=== PATIENT | female | born 1955 | race Caucasian/White ===

== ENCOUNTER 2017-02-13 13:55 | Emergency (ER) | payer MEDICAID ==
--- NOTE | 2017-02-13 14:11 | ED Physician Chart ---
Chief Complaint/HPI - Patient Information Date Seen:: 02/13/17 Time Seen:: 14:05 Chief Complaint:: R knee pain for about 9 months. History of Present Illness:: Pt has h/o R knee pain for about 9 months. Pt has been followed with her PCP Dr. Kerr with R knee X-ray done about 5 months ago which revealed ?DJD according to pt. Pt is here primarily for pain control. Pt denies any recent injury to R knee. No weakness or numbness. Pt has not taken any analgesic today. Allergies:: Allergies Allergy/AdvReac Type Severity Reaction Status Date / Time codeine Allergy VOMITING Verified 10/15/16 10:34 Sulfa (Sulfonamide Allergy ITCHINESS Verified 10/15/16 10:34 Antibiotics) Vitals:: see Nurse Note. Historian:: Patient Family MD/PCP:: Dr. Kerr LMP:: Postmenopausal. Review:: Nurse's Note Reviewed Review of Systems - Review of Systems General/Constitutional: No fever, No chills, No weight loss, No weakness, No diaphoresis, No edema, No loss of appetite Skin: No skin lesions, No rash, No bruising Head: No headache, No light-headedness Eyes: No loss of vision, No pain, No diplopia ENT: No earache, No nasal drainage, No sore throat, No tinnitus Neck: No neck pain, No swelling, No thyromegaly, No stiffness, No mass noted Cardio Vascular: No chest pain, No palpitations, No PND, No orthopnea, No edema Pulmonary: No SOB, No cough, No sputum, No wheezing GI: No nausea, No vomiting, No diarrhea, No pain, No melena, No hematochezia, No constipation, No hematemesis G/U: No dysuria, No frequency, No hematuria Musculoskeletal: No back pain, Other (R knee pain, see HPI.) Endocrine: No polyuria, No polydipsia Psychiatric: Prior psych history, No depression, No anxiety, No suicidal ideation, No homicidal ideation, No auditory hallucination, No visual hallucination Hematopoietic: No bruising, No lymphadenopathy Allergic/Immuno: No urticaria, No angioedema Neurological: No syncope, No focal symptoms, No weakness, No paresthesia, No headache, No seizure, No dizziness, No confusion, No vertigo Past Medical History - Past Medical History Past Medical History: HTN, PUD/GERD, Arthritis (DJD), Other (osteoporosis) Family History: Heart disease, Diabetes Melitus Social History: Non Smoker, No Alcohol, No Drug Use, , Other (lives with her daugher and son-in-law.) Employment:: unemployed. Surgical History: Cholecystectomy (in her 30's) Psychiatricy History: Depression, Schizophrenia Medication: Reviewed Family Medical History - Family Member Mother Sister History Unknown: Yes Ethnicity: Non- Hx Family Cancer: No Hx Family Coronary Artery Disease: Yes Hx Family Congestive Heart Failure: No Hx Family Hypertension: No Brother History Unknown: Yes Ethnicity: Non- Living Status: Still Living Hx Family Diabetes: Yes Daughter History Unknown: Yes Ethnicity: Living Status: Still Living Hx Family Cancer: Yes (CERVICAL) Physical Exam - Physical Examination General/Constitutional: Awake, Well-developed, well-nourished, Alert, No distress, GCS 15, Non-toxic appearing Other Gen/Cons comments:: Breathes comfortably, speaks clearly, and interacts normally. Head: Atraumatic Eyes: Lids, conjuctiva normal, PERRL, EOMI Skin: Nl inspection, No rash, No skin lesions, No ecchymosis, Well hydrated, No lymphadenopathy Neck: Nontender, Full ROM w/o pain, No nuchal rigidity, No mass, No stridor Respiratory: Nl effort/Exclusion, Clear to Auscultation, No Wheeze/Rhonchi/Rales Cardio Vascular: RRR, No murmur, gallop, rubs GI: No tenderness/rebounding/guarding, No organomegaly, No hernia, Normal BS's, Nondistended, No mass/bruits, No McBurney tenderness Other GI comments:: Abdomen is obese but soft. Other Extremities comments:: R knee: Tenderness to palpation at anterio-medial aspect. Good ROM. No noticeable swelling, erythema, gross deformity, open wound, crepitus or unusal warmth. Negative Drawer's sign. Stable MCL and LCL. No detectable motor/sensory/ vascular deficit. Neuro/Psych: Alert/oriented (oriented x 3), Mood normal, No focal deficits ED Septic Shock - . Is Septic Shock (SBP<90, OR Lactate>4 mmol\L) present?: No Reassessment (Disposition) - Reassessment Reassessment:: 1448 Pt feels much better. She is back to her baseline functional status and is ambulatory without assistance without difficulty. Pt states that she already has an appointment with her PCP Dr. Kerr tomorrow. Pt requests to go home now and will follow with Dr. Kerr tomorrow. Aftercare instructions have been given. Reassessment Condition:: Improved - Diagnosis Diagnosis:: Chronic R knee pain c/w osteoarthritis, stable and improved. - Aftercare/Follow up Instructions Aftercare/Follow-Up Instructions:: Refer to Discharge Instructions Notes:: Avoid heavy lifting and excessive wt bearing activities on R knee. May take Tylenol 500 mg tab one tab po q4-6h as directed. F/U with PCP Dr. Kerr as scheduled tomorrow. Return to ER immediately if condition worsens or if any further questions/problems. Medication Prescribed:: None - Patient Disposition Discharge/Transfer:: Home Time:: 14:55 Condition at Disposition:: Stable, Improved
== END 2017-02-13 14:40 | disposition home or self-care (01) ==
LOC: ER 13:55
DX: M17.11 Unilateral primary osteoarthritis, right knee (principal); I10 Essential (primary) hypertension; K21.9 Gastro-esophageal reflux disease without esophagitis; Z90.49 Acquired absence of other specified parts of digestive tract; Z88.2 Allergy status to sulfonamides; Z88.6 Allergy status to analgesic agent
CPT/HCPCS: 99283; 96372; J1885; Z7502

== ENCOUNTER 2017-09-11 16:59 | Emergency (ER) | payer MEDICAID ==
--- NOTE | 2017-09-11 18:02 | ED Physician Chart ---
ED Chief Complaint/HPI - Patient Information Date Seen:: 09/11/17 Time Seen:: 17:34 Chief Complaint:: Small boil at L axillary region for 2 days. History of Present Illness:: Pt came in by private auto for the above reason. No fever. Pt take po well without N/V/D. Allergies:: Allergies Allergy/AdvReac Type Severity Reaction Status Date / Time codeine Allergy VOMITING Verified 09/11/17 17:37 Sulfa (Sulfonamide Allergy ITCHINESS Verified 09/11/17 17:37 Antibiotics) Vitals:: Vital Signs - 8 hr 09/11/17 17:38 Temp 97.9 F HR 79 RR 18 BP 153/77 O2 Sat % 95 Historian:: Patient Family MD/PCP:: Dr. Dillon LMP:: Postmenopausal. Review:: Nurse's Note Reviewed ED Review of Systems - Review of Systems General/Constitutional: No fever, No weight loss, No weakness, No edema, No loss of appetite Skin: Other (L axillary lesion.) Head: No headache, No light-headedness Eyes: No loss of vision, No pain, No diplopia ENT: No earache, No nasal drainage, No sore throat Neck: No neck pain, No swelling, No thyromegaly, No stiffness, No mass noted Cardio Vascular: No chest pain, No palpitations, No edema Pulmonary: No SOB, No cough, No wheezing GI: No nausea, No vomiting, No diarrhea, No pain G/U: No dysuria, No frequency, No hematuria Shallot Packer: No vaginal discharge, No abnormal vaginal bleed Musculoskeletal: No bone or joint pain Endocrine: No polyuria, No polydipsia Psychiatric: Prior psych history, No depression, No anxiety, No suicidal ideation, No homicidal ideation, No auditory hallucination, No visual hallucination Hematopoietic: No bruising, No lymphadenopathy Allergic/Immuno: No urticaria, No angioedema Neurological: No syncope, No focal symptoms, No weakness, No paresthesia, No headache, No dizziness, No confusion ED Past Medical History - Past Medical History Past Medical History: HTN, Asthma/COPD, Other (osteoporosis) Family History: Heart disease (brother and sister.), Diabetes Melitus (one brother), Cancer (parents and one daughter.) Social History: Non Smoker, No Alcohol, No Drug Use, , Other (lives with her daughter.) Employment:: unemployed. Surgical History: other (R knee arthroscopic surgery 06/2017) Psychiatricy History: Depression, Schizophrenia, Other (Anxiety disorder.) Medication: Reviewed Family Medical History - Family Member Mother Sister History Unknown: Yes Ethnicity: Non- Living Status: Still Living Hx Family Cancer: No Hx Family Coronary Artery Disease: Yes Hx Family Congestive Heart Failure: No Hx Family Hypertension: No Brother History Unknown: Yes Ethnicity: Non- Living Status: Still Living Hx Family Coronary Artery Disease: Yes Hx Family Diabetes: Yes Daughter History Unknown: Yes Ethnicity: Living Status: Still Living Hx Family Cancer: Yes (CERVICAL) ED Physical Exam - Physical Examination General/Constitutional: Awake, Well-developed, well-nourished, Alert, No distress, GCS 15, Non-toxic appearing, Ambulatory Other Gen/Cons comments:: Breathes comfortably, speaks clearly, interacts normally and ambulates without difficulty. Head: Atraumatic Eyes: Lids, conjuctiva normal, PERRL, EOMI Skin: No ecchymosis, Well hydrated, No lymphadenopathy Other Skin comments:: There is an approx 1.2 cm slightly erythematous indurated lesion in anterior aspect of left axillary region c/w early abscess. No flocculent center. No red streakings or peripheral erythema. No crepitus. ENMT: Nasal exam nl, Oropharynx nl Neck: Nontender, Full ROM w/o pain, No nuchal rigidity, No mass, No stridor Respiratory: Nl effort/Exclusion, Clear to Auscultation, No Wheeze/Rhonchi/Rales Cardio Vascular: RRR, No murmur, gallop, rubs Extremities: No edema Neuro/Psych: Alert/oriented (oriented x 3), Judgement/insight normal, Mood normal, Normal gait, No focal deficits ED Septic Shock - . Is Septic Shock (SBP<90, OR Lactate>4 mmol\L) present?: No - <6hrs of presentation: Vital Signs: Vital Signs - 8 hr 09/11/17 17:38 Temp 97.9 F HR 79 RR 18 BP 153/77 O2 Sat % 95 ED Reassessment (Disposition) - Reassessment Reassessment:: 1820 Pain medication was offered, but pt declined. Pt prefers to leave now. Aftercare instructions given. - Diagnosis Diagnosis:: Early left axillary abscess. Stable. - Aftercare/Follow up Instructions Aftercare/Follow-Up Instructions:: Refer to Discharge Instructions Notes:: Keep affected area clean and dry. May take Motrin 200 mg tab 4 tab po q8h prn pain. F/U with PCP Dr. Dillon in 1-2 days for recheck. Return to ER immediately if condition worsens or if any further questions/problems. Medication Prescribed:: Clindamycin 300 mg tab one tab po q6h for 10 days. D-40 R-0 - Patient Disposition Discharge/Transfer:: Home Time:: 18:25 Condition at Disposition:: Stable ED Discharge Plan - Patient Disposition Admit/Discharge/Transfer: PT DISCHARGED HOME Condition at Disposition: Stable Prescriptions: Clindamycin HCl 300 mg PO Q6H 10 Days #40 capsule Instructions: Abscess Additional Instructions: Pt. to DC home with prescriptions. Follow-up with primary MD.
== END 2017-09-11 18:29 | disposition home or self-care (01) ==
LOC: ER 16:59
DX: L02.412 Cutaneous abscess of left axilla (principal); I10 Essential (primary) hypertension; J45.909 Unspecified asthma, uncomplicated; J44.1 Chronic obstructive pulmonary disease with (acute) exacerbation
CPT/HCPCS: Z7502

== ENCOUNTER 2018-01-14 10:34 | Emergency (ER) | payer MEDICAID ==
[2018-01-14] MEDS ORDERED: Albuterol/Ipratropium Neb 3 ML AERS HHN ONE ×2 (11:30→11:41)
[2018-01-14 11:42] LABS: % BASOPHILS 0.3 % (0.0-2.0); % EOSINOPHILS 0.9 % (0.0-5.0); % LYMPHOCYTES 11.7 % (20.0-50.0); % MONOCYTES 7.9 % (2.0-10.0); % NEUTROPHILS 79.2 % (40.0-80.0); EOSINOPHILE ABSOLUTE 0.1 Th/cmm (0.1-0.4); HEMOGLOBIN 13.9 gm/dL (12-16); LYMPHOCYTE ABSOLUTE 0.7 Th/cmm (1.5-3.0); MEAN CORPUSCULAR HEMOGLOBIN 30.5 pg (27.0-31.0); MEAN CORPUSCULAR HGB CONC 33.8 pg (28.0-36.0); MEAN PLATELET VOLUME 7.5 fl; MONOCYTE ABSOLUTE 0.5 Th/cmm (0.3-1.0); NEUTROPHILE ABSOLUTE 4.4 Th/cmm (1.8-8.0); PLATELET COUNT 259 Th/cmm (150-400); RED BLOOD COUNT 4.56 Mil/cmm (3.80-5.10); RED CELL DISTRIBUTION WIDTH 12.9 % (11.5-20.0)
[2018-01-14 11:47] LABS: ALB/GLOB RATIO 1.5 (1.0-1.8); ALBUMIN 4.6 gm/dL (3.7-5.3); ALKALINE PHOSPHATASE 75 U/L (34-104); ANION GAP 10.3 (7.0-16.0); BILIRUBIN,TOTAL 0.5 mg/dL (0.3-1.0); BUN - UREA NITROGEN 13 mg/dL (7-25); CALCIUM SERUM 10.7 mg/dL (8.6-10.3); CARBON DIOXIDE 30.5 mEq/L (21.0-31.0); CHLORIDE 96 mEq/L (98-107); CREATININE - SERUM 0.8 mg/dL (0.6-1.2); GFR AFRICAN-AMERICAN > 60.0 ml/min (>90); GFR NON AFRICAN-AMERICAN > 60.0 ml/min; GLUCOSE 130 mg/dL (70-105); POTASSIUM SERUM 3.8 mEq/L (3.5-5.1); SGOT 15 U/L (13-39); SGPT/ALT 20 U/L (7-52); SODIUM SERUM 133 mEq/L (136-145); TOTAL PROTEIN,SERUM 7.7 gm/dL (6.0-8.3)
[2018-01-14 11:51] LABS: WHITE BLOOD COUNT 5.7 Th/cmm (4.8-10.8)
[2018-01-14 11:56] LABS: INF A SCREEN NEG FOR INF A; INF B SCREEN NEG FOR INF B
--- NOTE | 2018-01-14 17:17 | Transfer Summary ---
DATE OF TRANSFER: 01/14/2018 ADDENDUM FOLLOWUP ADDENDUM REPORT I just got the complete report showing white count to be 5.7; hemoglobin 13.9; hematocrit 41; platelet count 259,000; neutrophils are 79.2, which is almost high; and lymphocytes are 11.7, low. Sodium 133, potassium 3.8, chloride 96, CO2 of 30.5, BUN 13, creatinine 0.8, calcium is 10.7, glucose is 130, magnesium is 2.1. Bilirubin is 0.5, AST is 15, ALT is 20, alkaline phosphatase 77. Total protein 7.7, ____ 4.6, globulin 3.1, and ____ is 1.5. Influenza A and B rapid serology test was negative. The patient's EKG shows complete left bundle branch block, hence underlying old anteroseptal myocardial infarction cannot be ruled out. The patient has left bundle branch block. FINAL DIAGNOSES: 1. Acute tracheobronchitis and upper respiratory tract infection. 2. Chronic obstructive pulmonary disease by default. 3. Hypertension. 4. Psychosis. 5. Schizophrenia. 6. Possible some kind of right knee joint surgery done in the past and she will need right knee joint replacement. She says she will get it done in April of this year. She has allergic condition. The other thing is that SHE IS ALLERGIC TO CODEINE, GIVING RISE TO VOMITING and this was verified dated 01/14/2018 and SULFA ALLERGY GIVING RISE TO ITCHING, again verified as of today. She has depression. The patient is being discharged for home. She should take her usual medications that she is taking and I will give her some antibiotic, cough syrups for her condition. So, she does not have any flu, which is a good sign and we can give her some Levaquin 500 mg once a day for 5 days that will cover for gram-positive, gram-negative, as well as for Mycoplasma pneumoniae, atypical pneumonia, and give her some cough syrup and she should not be smoking. She is not smoking, but in case if she decides to smoke, she should not smoke at all and she should check with her doctor. The patient will be sent home and she will follow up with her medications. Here, we have given the ceftriaxone, which was a good thing and all her blood pressure medications will be continued as the same. I think she might need for her tachycardia she is describing and left bundle branch block is pathological usually because of coronary artery disease or sick sinus syndrome, sometimes with aortic stenosis you see that better to give some medication to slow the heart rate down, we will give her some Lopressor 50 mg once a day, Toprol-XL is better, but it is a little more expensive, so we will give simple Lopressor along with antibiotic and cough syrup for 5 days and by that time, she should be getting better. JOB# [id number]
--- NOTE | 2018-01-14 17:23 | ER Physician Documentation ---
DATE OF SERVICE: 01/14/2018 EMERGENCY ROOM EVALUATION AND TREATMENT NOTE A female patient, 62-year-old, somewhat deaf. The time she was triaged was 1040 and the time I saw was at 11:00. CHIEF COMPLAINT: Cough, shortness of breath, says she has bronchitis. She has nasal congestion. She has a headache, body ache for 3 days. One of the family members, the grandchild also had some bronchitis, flu-like symptoms. She got better. Nobody else in the family has flu and now she got these symptoms. ALLERGIES: THE PATIENT HAS ALLERGIES TO CODEINE AND SULFA. REVIEW OF SYSTEMS: CONSTITUTIONAL: The patient for the past 3 days has the symptoms, is getting worse and she came to the hospital. She is coughing up [id number] phlegm. She has congestion when she coughs and can hear congested chest on exam. EYES: No history of double vision, blurring, or blindness. Somewhat congested eyes looking, but no definite conjunctivitis is noted. There is no scleritis. There is no evidence of any jaundice. ENT: No illness. Neck veins are nondistended. Jugular pressure is within normal limits. The patient does not have any lymph node enlargement in the neck. PULMONARY: No history of pneumonia, TB, pulmonary embolism, COPD, emphysema, or bronchitis, but the patient says that now that she had little asthma. She used to be a chronic smoker 33 years ago, almost 1 pack a day for 33 years. Over the past 12 to 13 years, she is not smoking. CARDIAC: No history of angina pectoris, but she says she has hypertension. She has a fast heart rate and what she means by a fast heart rate I cannot tell. GASTROINTESTINAL: No diarrhea, no constipation, no vomiting. GENITOURINARY: No history of genitourinary problems. MUSCULOSKELETAL: No history of rheumatological problem. No history of osteoporosis. She has degenerative joint disease in the right knee that she needs the knee joint replacement may be done in April or so. PAST MEDICAL HISTORY: Positive for hypertension, schizophrenia. She has fast heart rate. She has some depression. Past medical history is tachycardia, asthma, osteoporosis, and right knee joint surgery in future. ALLERGIES: SHE HAS ALLERGY TO CODEINE AND ALLERGY TO SULFA. HOME MEDICATIONS: Included she is on Abilify 20 mg p.o. daily, amlodipine which is antihypertensive medication 10 mg daily, alendronate sodium which is for osteoporosis 70 mg once a week, montelukast sodium 10 mg daily which is loratadine, which is like an antiallergic medication 10 mg daily, mirtazapine antidepressant 45 mg p.o. at bedtime, and losartan hydrochlorothiazide, which is 100-25 mg, i.e., 100 mg of losartan, which is ARB - 25 is hydrochlorothiazide, so there is a combination of ARB and hydrochlorothiazide. If she does not take montelukast, she can take Claritin, Claritin is 5 times ____ same medication. She also takes isosorbide mononitrate 30 mg daily. She takes buspirone, which is 15 mg p.o. q.i.d.; trazodone that is Desyrel 50 mg at nighttime, omeprazole 20 mg p.o. at bedtime, she takes it. FAMILY HISTORY: Parents have been . Brother, sisters are okay. PHYSICAL EXAMINATION: VITAL SIGNS: The triage nurse took the vital signs showing temperature 98.4, pulse 92, respirations 18, blood pressure 133/88, 94% saturation on room air. Height is 5 feet 3 inches, weight 190. She is somewhat deaf. Last menstrual period was many years ago. She is a 4, para 3. She has three children. She has no . GENERAL: Shows that she appears to be comfortable, but she has cough. She has shortness of breath and she has a congested cough. She could easily cough up some phlegm, but one can sound that it is a moist chest secretions in the chest. NECK: Supple, no meningeal signs. EXTREMITIES: No edema, no cyanosis, no petechia. No ecchymosis. CHEST: On examination of the chest, trachea being central. No deformity of the chest wall slightly emphysematous chest wall and bilateral scattered rales and rhonchi audible. There is no definite bronchial breathing heard. CENTRAL NERVOUS SYSTEM: Within normal limits. No history of any trauma, Parkinson disease, history of psychosis, history of depression and schizophrenia. She is taking a lot of medications. She has a history of asthma, just started. She has a history of COPD by default since she has been smoking a lot of cigarettes for 33 years, so by default she has COPD, osteoporosis she has for which she takes a medication. Tachycardia she has and this is a ? what kind of tachycardia it is. At this age, the chances of her tachycardia most likely is atrial fibrillation because she has coronary artery disease, she has hypertension, hypertensive heart disease, so the chances are there that she has atrial fibrillation as a tachycardia, but she needs to know what kind of tachycardia she gets, she should write it down and anytime when she comes back here to the hospital, she should let one of our nurses know, so we could put that in writing point. She is a patient of Dr. Finley ____ I cannot read our own nurses' writing, but Dr. Finley is the patient's MD. In view of her taking amlodipine, she is having hypertension. In view of her taking antiallergic medication, she may be having allergies. She has a lot of antidepressant medications. She takes a medication for osteoporosis. She is allergic to SULFA AND CODEINE. CVA appears to be within normal limits, so the current medication Abilify 20 mg daily, amlodipine 10 mg daily, alendronate sodium 70 mg, loratadine 10 mg, mirtazapine 45 mg at bedtime, losartan hydrochlorothiazide 100/25 mg 1 daily, loratadine 1 tablet daily, so montelukast, loratadine Claritin all are one in the same medication and 10 mg tablet, this is one of the cheapest tablet. If she buys generic loratadine, it would be like 3 or 4 cents a piece. Then, she takes isosorbide mononitrate that tells us that whether she has any coronary artery disease. I will order an EKG to see if there is anything to suggest that she has any acute coronary or previous myocardial infarction and hence according to that if I can give her some beta blockers in a manager transition dosage whether Coreg or Lopressor would work. She is on buspirone hydrochloride 15 mg 4 times a day q.i.d., trazodone that is Desyrel 50 mg at bedtime that is for depression and she is taking omeprazole, which is PPI that means proton pump inhibitor, Prilosec, she takes 20 mg at bedtime, probably for GERD that means gastroesophageal reflux disease. In conclusion, the patient's clinical diagnoses are acute tracheobronchitis and upper respiratory tract infection, rule out influenza. Influenza A is not a very serious condition, but influenza B is a very serious condition and today 3 days as past, so usually after 3 days - 4 days, Tamiflu is usually not given. A new medication is coming that will kill the flu viruses and lets hope that it comes. The patient will get right knee joint surgery. The patient did not have a knee joint surgery in the past. She has some pain in the chest 04/30. Thanks for nurses to take the nice patient's triaging. JOB# [id number]
== END 2018-01-14 12:21 | disposition home or self-care (01) ==
LOC: ER 10:34
DX: J20.9 Acute bronchitis, unspecified (principal); J06.9 Acute upper respiratory infection, unspecified; J44.9 Chronic obstructive pulmonary disease, unspecified; I10 Essential (primary) hypertension; F29 Unspecified psychosis not due to a substance or known physiological condition; F20.9 Schizophrenia, unspecified
CPT/HCPCS: 99285; 96372; 94640; 93005; 36415; 87804 ×2; 85025; 83735; 80053; J0696